=== PATIENT | female | born 1970 | race Caucasian/White ===

== ENCOUNTER 2017-07-06 19:55 | Emergency (ER) | payer OTHER ==
[2017-07-06] MEDS: KETOROLAC 30 MG INJ IM (21:12)
[2017-07-06] MEDS: IPRATROPIUM (NEB) 0.5 MG/2.5 ML AMP HHN (21:17)
[2017-07-06] MEDS: ALBUTEROL 0.083% (NEB) 2.5 MG/3 ML AMP HHN (21:17)
[2017-07-06 21:20] LABS: URINE BLOOD (Dip) POC Negative (NEGATIVE); URINE GLUCOSE (Dip) POC Negative (NEGATIVE); URINE KETONES (Dip) POC Negative (NEGATIVE); URINE LEUKOCYTE EST (Dip) POC Negative (NEGATIVE); URINE NITRITE (Dip) POC Negative (NEGATIVE); URINE TOTAL PROTEIN POC Negative (NEGATIVE)
[2017-07-06] MEDS: ACETAMINOPHEN 500 MG TAB PO (21:28)
== END 2017-07-06 22:46 | disposition home or self-care (01) ==
LOC: FTE 19:55
DX: M54.5 Low back pain (principal); R09.81 Nasal congestion; J02.9 Acute pharyngitis, unspecified; R51 Headache; R05 Cough
CPT/HCPCS: 71046; 81003; 87400; 94664; 96372; 99284-25